=== PATIENT | male | born 1930 | race Caucasian/White ===

== ENCOUNTER 2016-07-15 01:55 | Day surgery (SDC) | payer MEDICARE, OTHER ==
[~2016-07-15] VITALS: Ht 182.9 cm; Wt 104.5 kg
[2016-07-15] VITALS (17 sets, daily range): BP systolic 91–131; BP diastolic 54–80; PULSE 58–68; RESP 12–22; O2SAT 88–97
[~2016-07-15 01:55] MED LIST: AMLO2.5T PO; ASPI-973 PO; CLOP75TA28 PO; FURO-128 PO; GABA-502 PO; IPRA4AER IH; ISOS30TA4 PO; LOSA25TA2 PO; METO25TA99 PO; NITR12SP5 TL; OMEP20CA11 PO; POTA10CA42 PO; RANO500T3 PO; SIMV20TA4 PO; SYMINH INHALATION; TIOT18CA3 IH
[2016-07-15] MEDS ORDERED: 0.9% Sodium Chloride 1,000 ML IV ONE (07:34)
[2016-07-15 10:39] LABS: BASOPHILS % (AUTO) 0.5 % (0-3); MONOCYTES % (AUTO) 10.9 % (4-12); Mean Corpuscular Hemoglobin 33.2 pg (27.0-35.0); NEUTROPHILS % (AUTO) 58.4 % (40-74); Platelet Count 222 bil/L (150-400)
[2016-07-15 10:57] LABS: INR 0.98 ratio
--- NOTE | 2016-07-15 11:36 | NUR ---
EDIN Patient admitted to [facility] at 1000. Daughter Lauren at bedside. Patient denies pain at this time but does C/O chronic back pain exacerbated with movement. HL X 2 placed and labs obtained. Consent and ECG 12 in chart. History and medications reviewed. Pre-procedure teaching done and questions answered,
[2016-07-15] MEDS ORDERED: 0.9% Sodium Chloride 250 ML ONE (12:43)
[2016-07-15] MEDS ORDERED: 0.9% Sodium Chloride 1,000 ML IV SCH (13:00)
[2016-07-15] MEDS ORDERED: Heparin 1,000 Units/500 mL NS Premix IV ONE (13:04)
[2016-07-15] MEDS ORDERED: 0.9% Sodium Chloride 1,000 ML ONE (13:04)
[2016-07-15] MEDS ORDERED: Heparin 1,000 Unit/mL 10 mL Inj ONE (13:05)
[2016-07-15] MEDS ORDERED: diphenhydrAMINE 25 mg Capsule PO ONE (13:08)
[2016-07-15] MEDS ORDERED: fentaNYL-PF 50 mCg/mL 2 mL Inj ONE (13:33)
--- NOTE | 2016-07-15 14:41 | CS94 ---
[address] [address] DIAGNOSTIC CARDIAC CATHETERIZATION PATIENT: LISA MIRELES : 1930 MR#: [id number] ADMIT: 07/15/2016 JOB ID: [id number] SERVICE DATE: 07/15/2016 PROCEDURE: Selective right and left coronary angiography, MCGREGOR angiography, saphenous vein angiography, left heart catheterization. INDICATION: Recurrent chest pain in a gentleman with known history of coronary artery disease. PROCEDURAL DETAILS: The procedure was done via right femoral approach using a 6-Luxembourger system. ANGIOGRAPHIC FINDINGS: 1. Left main totally occluded. 2. RCA totally occluded. 3. Saphenous vein graft to the diagonal is patent. This diagonal had a stent placed in its ostium. This stent is patent. 4. Saphenous vein graft to RCA is patent. 5. Saphenous vein graft to obtuse marginal branch is patent. One of the saphenous vein grafts, presumably to OM1, is occluded and has been occluded in the past. 6. MCGREGOR to LAD is patent. 7. Left heart catheterization revealed an LVEDP which was slightly elevated at 22. There is anterolateral and mild apical hypokinesis. EF is estimated to be about 50%. There was no gradient on pullback. SUMMARY: This gentleman has totally occluded [place] arteries. He is adequately revascularized. Medical management may be continued.
[2016-07-15] MEDS ORDERED: LOSA25TA21 PO (18:00)
[2016-07-15] MEDS ORDERED: CLOP75TA3 PO (18:00)
--- NOTE | 2016-07-15 18:59 | NUR ---
EDIN Patient return from [facility] at 1430. Denies pain. Daughter at bedside. Right groin angio seal without bleeding or hematoma. Pedal pulses present. Prior to discharge taking PO, ate dinner, ambulatory and void. Discharge instructions reviewed with patient and daughter, written information given and questions answered. Home with family at 1900.
== END 2016-07-15 23:59 | disposition home or self-care (01) ==
LOC: SOUO 01:55
PROVIDERS: ATTEND Internal Medicine Cardiovascular Disease
DX: I25.118 Atherosclerotic heart disease of native coronary artery with other forms of angina pectoris (principal); I25.718 Atherosclerosis of autologous vein coronary artery bypass graft(s) with other forms of angina pectoris; I10 Essential (primary) hypertension; J44.9 Chronic obstructive pulmonary disease, unspecified; G47.30 Sleep apnea, unspecified; Z95.5 Presence of coronary angioplasty implant and graft; E78.5 Hyperlipidemia, unspecified; E11.9 Type 2 diabetes mellitus without complications; I44.0 Atrioventricular block, first degree; Z98.890 Other specified postprocedural states; Z79.82 Long term (current) use of aspirin; Z79.02 Long term (current) use of antithrombotics/antiplatelets; Z87.891 Personal history of nicotine dependence; I25.82 Chronic total occlusion of coronary artery; I25.2 Old myocardial infarction; Z86.73 Personal history of transient ischemic attack (TIA), and cerebral infarction without residual deficits
CPT/HCPCS: 36415; 80048; 85025; 85610; 93459; 99152; 99153; C1760; C1769; J1644; J2250; J3010; Q9967